=== PATIENT | female | born 1955 | race Caucasian/White ===

== ENCOUNTER 2017-12-07 17:06 | Inpatient (IN) | payer BC, OTHER ==
[~2017-12-07] VITALS: Ht 170.2 cm; Wt 90.2 kg
[2017-12-07 17:46] VITALS: BP 170/79; PULSE 82; RESP 18; TEMP 98; O2SAT 100
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
[2017-12-07] MEDS ORDERED: ENAL10TA PO (18:19)
[2017-12-07] MEDS ORDERED: VITA250C3 CHEW (18:19)
[2017-12-07] MEDS ORDERED: MAGN400T24 PO (18:19)
[2017-12-07] MEDS ORDERED: CENTCHW3 PO (18:19)
[2017-12-07] MEDS ORDERED: CETI10CA3 PO (18:19)
[2017-12-07] MEDS ORDERED: VITA2000 PO (18:19)
--- NOTE | 2017-12-07 18:32 | RADRPT ---
EXAM DATE/TIME: 12/07/2017 17:59 [facility] COMPARISON: No previous studies available for comparison. INDICATIONS : Left hip pain after fall. MEDICAL HISTORY : None. SURGICAL HISTORY : None. ENCOUNTER: Initial ACUITY: 1 day PAIN SCORE: 10/10 LOCATION: Left hip. FINDINGS: There is a fracture of the left femoral neck with mild displacement and angulation. No dislocation. R ight hip intact. CONCLUSION: 1. Displaced left femoral neck fracture. Óscar Ceballos MD on December 07, 2017 at 18:30 Board Certified Radiologist. This report was verified electronically.
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
[2017-12-07 19:00] VITALS: BP 184/84; PULSE 87; RESP 16; O2SAT 97
--- NOTE | 2017-12-07 19:09 | RADRPT ---
EXAM DATE/TIME: 12/07/2017 18:54 [facility] COMPARISON: No previous studies available for comparison. INDICATIONS : Preoperative chest X-Ray. MEDICAL HISTORY : None. SURGICAL HISTORY : None. ENCOUNTER: Initial ACUITY: 1 day PAIN SCORE: 0/10 LOCATION: Bilateral chest FINDINGS: A single view of the chest demonstrates the lungs to be symmetrically aerated without evidence of mas s, infiltrate or effusion. The cardiomediastinal contours are unremarkable. Osseous structures are intact. CONCLUSION: No acute disease. Óscar Ceballos MD on December 07, 2017 at 19:08 Board Certified Radiologist. This report was verified electronically.
[2017-12-07 19:22] LABS: AUTOMATED NEUTROPHIL # 10.3 TH/MM3 (1.8-7.7); BASOPHIL % 0.3 % (0.0-2.0); EOSINOPHIL # 0.1 TH/MM3 (0-0.4); HEMATOCRIT 34.8 % (35.0-46.0); LYMPH % 10.5 % (9.0-44.0); LYMPHOCYTE # 1.3 TH/MM3 (1.0-4.8); MEAN CELL VOLUME 90.4 FL (80.0-100.0); MEAN CORPUSCULAR HEMOGLOBIN 31.2 PG (27.0-34.0); MEAN CORPUSCULAR HGB CONC 34.5 % (32.0-36.0); MEAN PLATELET VOLUME 7.9 FL (7.0-11.0); MONO % 5.9 % (0.0-8.0); MONOCYTE # 0.7 TH/MM3 (0-0.9); NEUT % 82.3 % (16.0-70.0); PLATELET COUNT 188 TH/MM3 (150-450); RED BLOOD COUNT 3.85 MIL/MM3 (4.00-5.30); RED CELL DISTRIBUTION WIDTH 14.4 % (11.6-17.2); WHITE BLOOD COUNT 12.5 TH/MM3 (4.0-11.0)
[2017-12-07 19:39] LABS: BICARBONATE 26.3 MEQ/L (21.0-32.0); CALCIUM 9.1 MG/DL (8.5-10.1); CREATININE 0.89 MG/DL (0.50-1.00)
[2017-12-07] MEDS ORDERED: ENALAPRIL MALEATE 10 MG TAB PO ONE (20:00)
[2017-12-07] MEDS ORDERED: MORPHINE SULFATE 4 MG/ML INJ IV PUSH ONE (20:00)
[2017-12-07 20:17] LABS: PROTHROMBIN TIME - PATIENT 10.5 SEC (9.8-11.6)
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
[2017-12-07] MEDS ORDERED: SODIUM CHLORIDE 0.9% FLUSH 10 ML FLUSH IV FLUSH PRN (20:30)
[2017-12-07] MEDS ORDERED: NALOXONE HCL 0.4 MG/ML AMP IV PUSH PRN (20:30)
[2017-12-07] MEDS ORDERED: ONDANSETRON HCL 4 MG/2 ML VIAL IVP PRN (20:30)
[2017-12-07] MEDS ORDERED: MORPHINE SULFATE 2 MG/ML INJ IV PUSH PRN (20:45)
[2017-12-07 21:00] VITALS: BP 131/57; PULSE 79
[2017-12-07] MEDS: SODIUM CHLORIDE 0.9% FLUSH 10 ML FLUSH IV FLUSH SCH (21:00)
[2017-12-07] MEDS: SODIUM CHLOR 0.9% 1000 ML INJ 1,000 ML IV SCH (21:04)
[2017-12-07 21:30] VITALS: BP 155/70; PULSE 81; RESP 17; TEMP 97.8; O2SAT 98
[2017-12-07 23:55] VITALS: BP 133/63; PULSE 74; RESP 17; TEMP 97.8; O2SAT 97
[2017-12-08] VITALS (7 sets, daily range): BP systolic 123–139; BP diastolic 56–63; PULSE 59–82; RESP 16–18; TEMP 96.9–98.9; O2SAT 93–95
[2017-12-08 00:52] LABS: BILIRUBIN, URINE NEG (NEG); BLOOD, URINE NEG (NEG); GLUCOSE,URINE NEG (NEG); HYALINE CAST, URINE 3 /lpf (RARE); KETONE, URINE 10 mg/dL (NEG); MUCUS URINE FEW /lpf (OCC); NITRITE,URINE NEG (NEG); URINE COLOR YELLOW (YELLW/STRAW); URINE LEUKOCYTE ESTERASE NEG (NEG)
[2017-12-08] MEDS ORDERED: SODIUM CHLORID 0.9% 500 ML IV PRN (03:30)
[2017-12-08] MEDS ORDERED: METOPROLOL TARTRATE 25 MG TAB PO PRN (03:30)
[2017-12-08] MEDS ORDERED: POVIDONE IODINE 5% (ANTISEPSIS KIT) 4 APPLICATIONS EACH NARE PRN (03:30)
[2017-12-08] MEDS ORDERED: LACTATED RINGER'S 1000 ML IV PRN (03:30)
[2017-12-08] MEDS ORDERED: CHLORHEXIDINE GLUCONATE 2 % 1 PACK (2 CLOTHS) TOPICAL PRN (03:30)
[2017-12-08 05:32] LABS: AUTOMATED NEUTROPHIL # 5.9 TH/MM3 (1.8-7.7); BASOPHIL % 0.3 % (0.0-2.0); EOSINOPHIL % 0.6 % (0.0-4.0); HEMATOCRIT 33.2 % (35.0-46.0); HEMOGLOBIN 11.4 GM/DL (11.6-15.3); LYMPHOCYTE # 1.2 TH/MM3 (1.0-4.8); MEAN CELL VOLUME 91.1 FL (80.0-100.0); MEAN CORPUSCULAR HEMOGLOBIN 31.2 PG (27.0-34.0); MEAN CORPUSCULAR HGB CONC 34.2 % (32.0-36.0); MEAN PLATELET VOLUME 8.1 FL (7.0-11.0); MONO % 6.9 % (0.0-8.0); MONOCYTE # 0.5 TH/MM3 (0-0.9); NEUT % 76.2 % (16.0-70.0); PLATELET COUNT 185 TH/MM3 (150-450); RED BLOOD COUNT 3.65 MIL/MM3 (4.00-5.30); RED CELL DISTRIBUTION WIDTH 14.1 % (11.6-17.2); WHITE BLOOD COUNT 7.8 TH/MM3 (4.0-11.0)
[2017-12-08 05:49] LABS: BICARBONATE 28.2 MEQ/L (21.0-32.0); CALCIUM 8.1 MG/DL (8.5-10.1); CREATININE 0.68 MG/DL (0.50-1.00)
[2017-12-08] MEDS: SODIUM CHLOR 0.9% 1000 ML INJ 1,000 ML IV SCH ×2 (06:09→16:30)
[2017-12-08] MEDS ORDERED: XARE10TA PO (06:53)
[2017-12-08] MEDS ORDERED: ASPI1CHW4 CHEW (06:53)
[2017-12-08] MEDS ORDERED: WALKER/ADULT/FO1 MIS (06:53)
[2017-12-08] MEDS ORDERED: HYDR-3583 PO (06:53)
--- NOTE | 2017-12-08 06:54 | HHI.FF ---
Face to Face Verification Diagnosis: (1) Femoral neck fracture Physical Therapy Gait training Hip: Total hip, Protocol: Left, Progress to weight bearing Right LE Weight Bearing: WB as tolerated Left LE Weight Bearing: WB as tolerated Nursing Dressing Changes: Daily dressing change, Coverderm/Primapore I have seen patient Inna Gould on 12/08/17. My clinical findings support the need for the requested home health care services because: Ltd mobility - disease progression I certify that my clinical findings support that this patient is homebound because: Post-op weakness Mendez Jordan/First Daryl RAMOS Dec 08, 2017 06:54
[2017-12-08] MEDS ORDERED: GENTAMICIN SULFATE 80 MG/2 ML VIAL ONE (07:06)
[2017-12-08] MEDS ORDERED: VANCOMYCIN HCL 1000 MG VIAL ONE (07:06)
[2017-12-08] MEDS ORDERED: ceFAZolin 2 GM PREMIX 50 ML ONE (07:06)
[2017-12-08] MEDS ORDERED: ACETAMINOPHEN 1000 MG/100 ML 100 ML IV ONE (07:58)
[2017-12-08] MEDS ORDERED: MORPHINE SULFATE 4 MG/ML INJ IV PUSH PRN (08:15)
[2017-12-08] MEDS ORDERED: ACETAMINOPHEN/HYDROcodone 325 MG/7.5 MG TAB PO PRN (08:15)
[2017-12-08] MEDS ORDERED: ACETAMINOPHEN/HYDROcodone 325 MG/10 MG TAB PO PRN (08:15)
[2017-12-08] MEDS ORDERED: SODIUM CHLORIDE 0.9% IV ONE (08:15)
[2017-12-08] MEDS ORDERED: Post-op Orders (for Pharmacy) XX ONE (08:15)
[2017-12-08] MEDS ORDERED: ACETAMINOPHEN/HYDROcodone 325 MG/5 MG TAB PO PRN (08:15)
[2017-12-08] MEDS ORDERED: BUPIVACAINE LIPOSOME PF 1.3% 20 ML VIAL INFIL ONE (08:15)
[2017-12-08] MEDS ORDERED: TRANEXAMIC ACID IV ONE (08:15)
[2017-12-08] MEDS ORDERED: BUPIVACAINE LIPOSO 1.3% P-ARTICULR SCH (08:45)
[2017-12-08] MEDS ORDERED: [UNRECOGNIZED DRUG - OTHER] P-ARTICULR SCH (08:45)
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
[2017-12-08] MEDS: ASPIRIN 81 MG CHEW TAB CHEW SCH ×2 (09:00→23:54)
[2017-12-08] MEDS: ACETAMINOPHEN 1000 MG/100 ML 100 ML IV SCH ×2 (09:00→22:16)
[2017-12-08] MEDS: CELECOXIB 200 MG CAP PO SCH ×2 (09:00→22:16)
[2017-12-08] MEDS: SODIUM CHLORIDE 0.9% FLUSH 10 ML FLUSH IV FLUSH SCH ×2 (09:00→22:16)
[2017-12-08] MEDS ORDERED: KETOROLAC TROMETHAMINE 30 MG/ML (IVP) VIAL IV PUSH SCH (09:00)
[2017-12-08] MEDS ORDERED: PNEUMOCOCCAL POLYVALENT INJ 25 MCG/0.5 ML SYR IM ONE (10:00)
[2017-12-08] MEDS: ceFAZolin 2 GM PREMIX 50 ML IV SCH ×3 (10:00→23:54)
[2017-12-08] MEDS ORDERED: TRANEXAMIC ACID INJ 1,000 MG in SODIUM CHLORIDE 0.9% INJ 100 ML IV ONE (10:00)
--- NOTE | 2017-12-08 10:08 | RADRPT ---
EXAM DATE/TIME: 12/08/2017 09:33 [facility] COMPARISON: No previous studies available for comparison. INDICATIONS : Post-op total left hip arthroplasty. MEDICAL HISTORY : None. SURGICAL HISTORY : None. ENCOUNTER: Subsequent ACUITY: 2 days PAIN SCORE: Non-responsive. LOCATION: Left hip. FINDINGS: The patient is status post a total hip arthroplasty with a bipolar prosthesis. Prosthesis is well-sea doyle. Alignment is anatomic. A fracture is not appreciated. CONCLUSION: Anatomic alignment. \ Lionel Ramos MD FACR on December 08, 2017 at 10:07 Board Certified Radiologist. This report was verified electronically.
--- NOTE | 2017-12-08 10:28 | PD.ORT.PN ---
Subjective Subjective Remarks POD 0 s/p anterior Left SRUTHI stable in PACU Objective Vitals Vital Signs Date Time Temp Pulse Resp B/P (MAP) Pulse Ox O2 Delivery O2 Flow Rate FiO2 12/08/17 03:00 98.4 65 17 133/62 (85) 95 12/08/17 00:20 73 12/07/17 23:55 97.8 74 17 133/63 (86) 97 12/07/17 21:30 97.8 81 17 155/70 (98) 98 12/07/17 21:16 97 12/07/17 21:00 79 131/57 (81) 12/07/17 19:00 87 16 184/84 (117) 97 12/07/17 17:46 98.0 82 18 170/79 (109) 100 I/O 12/07/17 12/07/17 12/07/17 12/08/17 12/08/17 12/08/17 07:00 15:00 23:00 07:00 15:00 23:00 Intake Total 360 ml 903 ml Output Total 0 ml 900 ml Balance 360 ml 3 ml Intake Oral 360 ml 0 ml IV Total 903 ml Output Urine Total 0 ml 900 ml # Bowel Movements 0 0 Result Diagram: 12/08/17 0444 12/08/17 0444 Other Results Laboratory Tests Test 12/07/17 18:35 Prothromb Time International Ratio 1.0 RATIO Prothrombin Time 10.5 SEC (9.8-11.6) Imaging Last 24 hours Impressions Hip X-Ray 12/08/17 0000 Signed Impressions: Service Date/Time: Friday, December 08, 2017 09:33 - CONCLUSION: Anatomic alignment. \ Lionel Ramos MD FACR Chest X-Ray 12/07/17 1828 Signed Impressions: Service Date/Time: November 18:54 - CONCLUSION: No acute disease. Óscar Ceballos MD Objective Remarks LLE: dressing in place. clean and dry. good cap refill distally Assessment & Plan Assessment and Plan 1) left Anterior SRUTHI - POD 0 -WBAT -maintain silver dressing x 6 days and begin daily dressing changes with primapore POD 6 -HHC to be arranged today -anticipate DC home with HHC Sat/Sun pending patient progress and arrangements -DVT prophylaxis with Xarelto x 10 days then transition to Aspirin 81mg BID x 20 days -f/u with Dr Miranda or PA in 2 weeks Mendez Jordan PA/First Brito PA Dec 08, 2017 10:28
[2017-12-08] MEDS ORDERED: DO NOT ADM ANY ANTICOAGULANT DRUGS PRN (10:35)
[2017-12-08] MEDS ORDERED: MIDAZOLAM HCL 2 MG/2 ML VIAL ONE (10:42)
[2017-12-08] MEDS ORDERED: *MEPERIDINE 25 MG INJ VIAL PERIprocedural Use ONLY ONE (10:51)
[2017-12-08] MEDS ORDERED: KETOROLAC TROMETHAMINE 30 MG/ML (IVP) VIAL ONE (11:20)
[2017-12-08] MEDS: LACTATED RINGER'S 1000 ML INJ 1,000 ML IV SCH ×2 (11:30→20:34)
[2017-12-08] MEDS ORDERED: KETOROLAC TROMETHAMINE 30 MG/ML (IVP) VIAL IV PUSH ONE (11:30)
--- NOTE | 2017-12-08 11:33 | RADRPT ---
EXAM DATE/TIME: 12/08/2017 10:31 [place] COMPARISON: No previous studies available for comparison. INDICATIONS : Post-op left total hip replacement. MEDICAL HISTORY : None. SURGICAL HISTORY : None. ENCOUNTER: Initial ACUITY: 1 day PAIN SCORE: Non-responsive. LOCATION: Left hip FINDINGS: The patient is status post a total hip arthroplasty with a bipolar prosthesis. Prosthesis is well-sea doyle. Alignment is anatomic. A fracture is not appreciated. CONCLUSION: Anatomic alignment. Lionel Ramos MD FACR Board Certified Radiologist. This report was verified electronically.
[2017-12-08] MEDS ORDERED: DEXAMETHASONE SOD PHOS 4 MG/ML VIAL IV ONE (12:00)
[2017-12-08] MEDS ORDERED: PROPOFOL 200 MG/20 ML AMP IV ONE (12:00)
[2017-12-08] MEDS ORDERED: NEOSTIGMINE 5 MG/5 ML SYRINGE IV PUSH ONE (12:00)
[2017-12-08] MEDS ORDERED: ROCURONIUM INJ 50 MG/5 ML SYRINGE IV PUSH ONE (12:00)
[2017-12-08] MEDS ORDERED: ONDANSETRON HCL 4 MG/2 ML VIAL IV PUSH ONE (12:00)
[2017-12-08] MEDS ORDERED: NORMOSOL R INJ 1,000 ML IV ONE (12:00)
[2017-12-08] MEDS ORDERED: LIDOCAINE HCL 1% PF 5 ML SYRINGE OTHER ONE (12:00)
[2017-12-08] MEDS ORDERED: NS 500 ML (EXCEL BAG) INJ 500 ML IV ONE (12:00)
[2017-12-08] MEDS ORDERED: GLYCOPYRROLATE 1 MG/5 ML SYRINGE IV PUSH ONE (12:00)
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
[2017-12-08] MEDS: VANCOMYCIN INJ 1,000 MG in SODIUM CHLOR 0.9% 250 ML INJ 250 ML IV SCH (19:34)
--- NOTE | 2017-12-08 23:55 | EKG ---
Date Performed: 12/08/2017 Time Performed: 05:13:08 PTAGE: 62 years EKG: Sinus rhythm Normal ECG NO PREVIOUS TRACING DOCTOR: Alvin Briseno Interpretating Date/Time 12/08/2017 23:54:32
[2017-12-09 00:02] VITALS: PULSE 79
[2017-12-09] MEDS: SODIUM CHLOR 0.9% 1000 ML INJ 1,000 ML IV SCH (02:30)
[2017-12-09 04:00] VITALS: PULSE 74
[2017-12-09 04:32] LABS: HEMATOCRIT 29.4 % (35.0-46.0); HEMOGLOBIN 10.2 GM/DL (11.6-15.3)
[2017-12-09 04:50] VITALS: BP 154/75; PULSE 72; RESP 17; TEMP 97.6; O2SAT 96
[2017-12-09 07:57] VITALS: BP 128/62; PULSE 80; RESP 18; TEMP 97.4; O2SAT 96
--- NOTE | 2017-12-09 08:05 | PD.ORT.PN ---
Subjective Post Op Day #: 1 Subjective Remarks minimal pain. ready to go home. Objective Vitals Vital Signs Date Time Temp Pulse Resp B/P (MAP) Pulse Ox O2 Delivery O2 Flow Rate FiO2 12/09/17 07:57 97.4 80 18 128/62 (84) 96 12/09/17 04:50 97.6 72 17 154/75 (101) 96 12/09/17 04:00 74 12/09/17 00:02 79 12/08/17 23:55 98.6 74 16 124/56 (78) 94 12/08/17 21:00 98.0 81 17 139/63 (88) 95 12/08/17 20:08 82 12/08/17 16:00 98.9 73 18 123/60 (81) 93 12/08/17 12:00 96.9 59 18 125/60 (81) 95 12/08/17 11:30 97.7 60 16 120/62 (81) 96 Nasal Cannula 2 12/08/17 11:15 63 15 119/59 (79) 95 Nasal Cannula 2 12/08/17 11:00 67 15 115/60 (78) 100 Nasal Cannula 3 12/08/17 10:45 71 15 112/59 (76) 98 Nasal Cannula 3 12/08/17 10:30 97.7 89 12 109/63 (78) 95 Nasal Cannula 3 I/O 12/08/17 12/08/17 12/08/17 12/09/17 12/09/17 12/09/17 07:00 15:00 23:00 07:00 15:00 23:00 Intake Total 903 ml 480 ml 680 ml 960 ml Output Total 900 ml 1100 ml 1300 ml 3600 ml Balance 3 ml -620 ml -620 ml -2640 ml Intake Oral 0 ml 480 ml 480 ml 960 ml IV Total 903 ml 200 ml Output Urine Total 900 ml 1100 ml 1300 ml 3600 ml # Bowel Movements 0 0 0 0 Result Diagram: 12/09/17 0406 12/08/17 0444 Imaging Last 24 hours Impressions Hip X-Ray 12/08/17 0000 Signed Impressions: Service Date/Time: Friday, December 08, 2017 09:33 - CONCLUSION: Anatomic alignment. \ Lionel Ramos MD FACR Chest X-Ray 12/07/17 2118 Signed Impressions: Service Date/Time: November 18:54 - CONCLUSION: No acute disease. Óscar Ceballos MD Objective Remarks LLE: dressing in place. clean and dry. good cap refill distally, neg homans Assessment & Plan Ortho Post Op Day #: 1 Problem List: Assessment and Plan 1) left Anterior SRUTHI - POD 1 -WBAT -maintain silver dressing x 6 days and begin daily dressing changes with primapore POD 6 -HHC to be arranged -anticipate DC home with HHC Sat/Sun pending patient progress and arrangements - cleared today if does well in PT -DVT prophylaxis with Xarelto x 10 days then transition to Aspirin 81mg BID x 20 days -f/u with Dr Miranda or PA in 2 weeks Guillermo Bundy Dec 09, 2017 08:05
--- NOTE | 2017-12-09 08:46 | HHI.PR ---
Subjective Remarks Pt seen and examined this morning. AFVSS. No acute events overnight. In good spirits and hopes to go home today. Denies any pain. Tolerating PO without nausea or vomiting. Passing gas. Denies CP, SOB, or calf pain. Objective Vital Signs Date Time Temp Pulse Resp B/P (MAP) Pulse Ox O2 Delivery O2 Flow Rate FiO2 12/09/17 07:57 97.4 80 18 128/62 (84) 96 12/09/17 04:50 97.6 72 17 154/75 (101) 96 12/09/17 04:00 74 12/09/17 00:02 79 12/08/17 23:55 98.6 74 16 124/56 (78) 94 12/08/17 21:00 98.0 81 17 139/63 (88) 95 12/08/17 20:08 82 12/08/17 16:00 98.9 73 18 123/60 (81) 93 12/08/17 12:00 96.9 59 18 125/60 (81) 95 12/08/17 11:30 97.7 60 16 120/62 (81) 96 Nasal Cannula 2 12/08/17 11:15 63 15 119/59 (79) 95 Nasal Cannula 2 12/08/17 11:00 67 15 115/60 (78) 100 Nasal Cannula 3 12/08/17 10:45 71 15 112/59 (76) 98 Nasal Cannula 3 12/08/17 10:30 97.7 89 12 109/63 (78) 95 Nasal Cannula 3 I/O 12/08/17 12/08/17 12/08/17 12/09/17 12/09/17 12/09/17 07:00 15:00 23:00 07:00 15:00 23:00 Intake Total 903 ml 480 ml 680 ml 960 ml Output Total 900 ml 1100 ml 1300 ml 3600 ml Balance 3 ml -620 ml -620 ml -2640 ml Intake Oral 0 ml 480 ml 480 ml 960 ml IV Total 903 ml 200 ml Output Urine Total 900 ml 1100 ml 1300 ml 3600 ml # Bowel Movements 0 0 0 0 Result Diagram: 12/09/17 0406 12/08/17 0444 Imaging Last Impressions Hip and Pelvis X-Ray 12/08/17 0804 Signed Impressions: Service Date/Time: Friday, December 08, 2017 10:31 - CONCLUSION: Anatomic alignment. Lionel Ramos MD Hip X-Ray 12/08/17 0000 Signed Impressions: Service Date/Time: Friday, December 08, 2017 09:33 - CONCLUSION: Anatomic alignment. \ Lionel Ramos MD FACR Chest X-Ray 12/07/17 1828 Signed Impressions: Service Date/Time: November 18:54 - CONCLUSION: No acute disease. Óscar Ceballos MD Procedures Left anterior total hip arthroplasty 12/08/17 Objective Remarks GENERAL: WN, WD female sitting up in bed NAD. SKIN: Warm and dry. HEENT: Pupils equal and round. No scleral icterus. MMM. NECK: Supple no tender LAD or JVD. HEART: RRR no m/r/g. LUNGS: CTAB without wheezes or crackles. ABDOMEN: Soft, NT, ND. EXTREMITIES: Surgical scar over left hip with dressing in place, C/D/I. No calf tenderness. 2+ pedal pulses. NEURO: Awake and alert. PSYCH: Appropriate mood and affect. A/P Problem List: (1) Femoral neck fracture ICD Code: S72.009A - Fracture of unspecified part of neck of unspecified femur , initial encounter for closed fracture Status: Acute Assessment and Plan Left hip fracture S/P SRUTHI POD 1 PT consulted To f/u with Dr. Miranda in 2 weeks DVT prophylaxis Xarelto per ortho FEN Tolerating PO Electrolytes WNL Regular diet Discharge Planning Anticipate D/C today Problem Qualifiers (1) Femoral neck fracture: Qualified Codes: S72.002A - Fracture of unspecified part of neck of left femur , initial encounter for closed fracture Sintia Montgomery MD Dec 09, 2017 08:46
[2017-12-09] MEDS: CELECOXIB 200 MG CAP PO SCH (09:01)
[2017-12-09] MEDS: ASPIRIN 81 MG CHEW TAB CHEW SCH (09:01)
[2017-12-09] MEDS: ACETAMINOPHEN 1000 MG/100 ML 100 ML IV SCH (09:03)
[2017-12-09] MEDS: VANCOMYCIN INJ 1,000 MG in SODIUM CHLOR 0.9% 250 ML INJ 250 ML IV SCH (09:10)
[2017-12-09] MEDS: SODIUM CHLORIDE 0.9% FLUSH 10 ML FLUSH IV FLUSH SCH (09:13)
[2017-12-09 11:53] VITALS: BP 141/69; PULSE 73; RESP 18; TEMP 97.5; O2SAT 98
[2017-12-09] MEDS ORDERED: DOCUSATE SODIUM 100 MG CAP PO SCH (21:00)
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
--- NOTE | 2017-12-15 07:29 | PD.OP ---
cc: Ramos Aquino MD Operative Report Date of Surgery: Dec 15, 2017 Preoperative Diagnosis: Displaced left femoral neck fracture Postoperative Diagnosis: Procedure: Left total hip arthroplasty by anterior approach Anesthesia: Gen. Surgeon: Ramos Aquino Sql Engineer(s): QIANA Wolfe PA-C The surgical procedure was assisted by my physician energy assistant. My P.A. presence was necessary throughout this case for the manipulation and positioning of the surgical extremity. My P.A. was assisting me throughout the duration of this procedure. The skill set of a physician energy assistant was medically necessary to complete this procedure. During the surgical case the surgical instrument repair specialist was working at the back table and the physician energy assistant was directly assisting me. Operation and Findings: PLAN OF ACTIVITY Weight bear as tolerated. DRAINS: 7-mm SHANE drain. IMPLANTS USED DePuy Corail size [11] collared stem with a size [52] [place] Gription cup, [52 /36] Altrx poly liner, and a [36+ 1.5] ceramic Biolox ceramic head. DETAILS OF PROCEDURE: This patient has a long history of hip pain. Patient was found to have severe osteoarthritis. The patient had radiographic evidence of joint space narrowing with [id number] arthritis and osteophytes around the acetabulum as well as the femoral head. There was also some cystic changes. The patient failed conservative treatment with pain medications, anti-inflammatories, physical therapy, assistive devices including a cane, as well as therapeutic injection of the hip. Patient's hip arthritis was limiting his ability to ambulate and perform activities of daily living. The patient wished to proceed with surgery and informed consent was obtained. Operative site was marked. I discussed both posterior approach and anterior approach with the patient and decision was made for anterior approach. Patient was brought to OR and placed on OR table. IV sedation and general anesthesia was administered by anesthesiologist. Patient positioned on a [place] table and was given IV antibiotics. Time-out procedure was performed. The hip and thigh were prepped with alcohol followed by Hibiclens. The thigh was draped in the usual sterile fashion. Clean Air Suite was used for this procedure. The procedure began with a 5-inch incision over the anterolateral thigh. Subcutaneous tissue was dissected with Bovie. The fascia over the tensa fasciae latae was incised. Care was taken to avoid injury to the lateral femoral cutaneous nerve. The tensor muscle was retracted laterally. Sartorius was retracted medially. Retractors were now placed. The reflected head of the rectus is now elevated. A capsulotomy was performed over the anterior head capsule. Sutures were placed to help retract the capsule. At this point the femoral head and neck were identified. With soft tissue protected, oscillating saw was used to make a cut through the femoral neck, the femoral head was now removed. At this point attention was turned to preparation of the acetabulum. The labrum was excised. The acetabulum was sequentially reamed up to size [52]. A [place] cup was now placed. Fluoroscopy was used to aid in identification of appropriate version. Cup was fully impacted and found to have excellent fit. Hole eliminator was now placed. The liner was now impacted into the cup. At this point the hip was externally rotated. A hook was placed around the proximal femur. The capsule was released off the lateral and medial femur. The hip was now extended and adducted. Retractors were placed around the proximal femur to allow for exposure. A box osteotome was used to remove the lateral cortex of the femoral neck. A broach was used to help lateralize the prosthesis. Canal finder was used to create a path down the canal. Next, the canal was sequentially broached up to size [11]. This was found to be an excellent fit. Calcar planer was placed. A standard head was placed, and the hip was reduced. The hip was found to have excellent stability with good range of motion. The leg lengths were measured under fluoroscopy and found to be equal compared to preoperatively. Trial broach was removed. The Corail stem was opened. Stem was fully impacted into the proximal femur in appropriate version. The femoral head was placed. The hip was again reduced. Fluoroscopy confirmed excellent alignment of prosthesis. The wound was thoroughly irrigated and capsule was closed with #1 Vicryl. The fascia over the tensor fasciae muscle was closed with #1 Vicryl, subcutaneous tissue was closed with 3-0 Vicryl and the skin was closed with fern and Dermabond skin closure. The capsule layers, muscle, and subcutaneous tissue were injected with a mixture of saline and bupivicaine. Dressings were applied. The patient was transferred to Recovery Room in stable condition. Ramos Aquino MD Dec 15, 2017 07:29
== END 2017-12-09 15:39 | disposition home health service (06) | DRG 470 ==
LOC: NEPC 17:06 → NEDA 19:13 → N06B 21:26
PROVIDERS: ADMIT Internal Medicine; ATTEND Family Medicine
PROC: 0SRB04A Replacement of Left Hip Joint with Ceramic on Polyethylene Synthetic Substitute, Uncemented, Open Approach (ICD-10-PCS; principal; 2017-12-08 07:59)
DX: S72.002A Fracture of unspecified part of neck of left femur, initial encounter for closed fracture (principal); I10 Essential (primary) hypertension; V18.4XXA Pedal cycle driver injured in noncollision transport accident in traffic accident, initial encounter; Y93.55 Activity, bike riding; Z87.891 Personal history of nicotine dependence
CPT/HCPCS: 71045; 73501; 73502; 76000; 80048; 81001; 85014; 85018; 85025; 85610; 85730; 86850; 86900; 86901; 93005; 99285; C1776; C9290; J0131; J0690; J1100; J1580; J1885; J2175; J2250; J2270; J2405; J2710; J3010; J3370; J7030; J7040; J7050; J7120